=== PATIENT | female | born 1965 | race Caucasian/White ===

== ENCOUNTER 2021-09-02 14:35 | Emergency (ER) | payer BC ==
[~2021-09-02 14:35] MED LIST: BENTYL 20MG TAB20 MG PO; MACROBID 100 M100 MG PO; ZOFRAN ODT 4 MG4 MG PO
[2021-09-02] MEDS ORDERED: MEDROL DOSEPAK 24 MG PO (17:07)
[2021-09-02] MEDS ORDERED: BENADRYL 25MG C25 MG PO (17:07)
[2021-09-02] MEDS ORDERED: PEPCID40 MG PO (17:07)
== END 2021-09-02 17:15 | disposition home or self-care (01) ==
LOC: ER1 14:35
DX: T78.40XA Allergy, unspecified, initial encounter (principal); Z91.048 Other nonmedicinal substance allergy status; Z88.2 Allergy status to sulfonamides
CPT/HCPCS: 96374; 96375; 99283; J1200; J2930